=== PATIENT | male | born 1985 | race American Indian/Alaskan Native ===

== ENCOUNTER 2017-02-05 09:48 | Observation (INO) | payer BC ==
[~2017-02-05 09:48] MED LIST: ceFAZolin 2 GM in NACL 0.9% 100 ML IV ONE
[2017-02-05] MEDS ORDERED: NACL BACTERIOSTATIC INFILTRATI ONE (11:21)
--- NOTE | 2017-02-05 11:37 | Anesthesia Consultation ---
<HONORIO PEREZ - Last Filed: 02/05/17 11:31> Anesthesia Consult and Med Hx Date of service: 02/05/17 (Scheduled for lap inguinal hernia repair-left with Dr. Elkins) - Airway Anesthetic Teeth Evaluation: Good ROM Head & Neck: Adequate Mental/Hyoid Distance: Adequate Mallampati Class: Class II Intubation Access Assessment: Probably Good - Pulmonary Exam CTA: Yes - Cardiac Exam Cardiac Exam: RRR - Pre-Operative Health Status ASA Pre-Surgery Classification: ASA2 Proposed Anesthetic Plan: General - Pre-Anesthesia Comment Pre-Anesthesia Comments: No previous. NPO since RI. - Pulmonary Hx Smoking: Yes (CIGARETTES 1/2 PPW X 13 YRS) Hx Asthma: No Hx Sleep Apnea: No - Cardiovascular System Hx Hypertension: No - Central Nervous System Hx Seizures: No Hx Psychiatric Problems: No - Gastrointestinal Hx Gastroesophageal Reflux Disease: No - Endocrine Hx Non-Insulin Dependent Diabetes: No - Other Systems Hx Alcohol Use: Yes (occassional) Hx Substance Use: No Hx Cancer: No Hx Obesity: No <ENMANUEL GRAHAM - Last Filed: 02/05/17 12:02> Anesthesia Consult and Med Hx - Pulmonary Exam CTA: Yes (slight wheeze left side--tx per dr nichole with albuterol puffs x 2) - Other Systems Hx Alcohol Use: Yes
[2017-02-05] MEDS ORDERED: SUBLIMAZE ONE ×2 (11:49→19:45)
[2017-02-05] MEDS ORDERED: DIPRIVAN 10 MG/ML IV ONE ×2 (11:49→14:27)
[2017-02-05] MEDS ORDERED: MARCAINE 0.25% INFILTRATI ONE ×3 (11:50→12:32)
[2017-02-05] MEDS ORDERED: XYLOCAINE MPF 2% ONE (11:51)
[2017-02-05] MEDS ORDERED: ZEMURON IV ONE (11:52)
[2017-02-05] MEDS ORDERED: LACTATED RINGERS 1,000 ML IV SCH (12:00)
[2017-02-05] MEDS ORDERED: PROAIR IH ONE ×2 (12:00→14:32)
[2017-02-05] MEDS ORDERED: VERSED IV NR (12:00)
[2017-02-05] MEDS ORDERED: ANCEF/STERILE WATER 2 GM/20 ML 2 GM/20 ML SYRINGE IV SCH (12:00)
[2017-02-05] MEDS ORDERED: PEPCID PO NR (12:00)
[2017-02-05] MEDS ORDERED: ZOFRAN IV PRN (12:01)
[2017-02-05] MEDS ORDERED: DILAUDID IV PRN ×2 (12:01→13:10)
--- NOTE | 2017-02-05 12:02 | Anesthesia Day of Surgery ---
Anesthesia Day of Surgery - Day of Surgery Patient Examined: Yes Patient H&P Reviewed: Yes Patient is NPO: Yes Beta Blockers: No Cardiac Clearance: No Pulmonary Clearance: No
[2017-02-05] MEDS ORDERED: TORADOL ONE ×2 (12:09→14:00)
[2017-02-05] MEDS ORDERED: ZOFRAN ONE (12:25)
[2017-02-05] MEDS ORDERED: DECADRON ONE (12:25)
[2017-02-05] MEDS ORDERED: DILAUDID ONE (12:30)
[2017-02-05] MEDS ORDERED: ROBINUL ONE ×2 (12:31)
[2017-02-05] MEDS ORDERED: NACL 0.9% IR ONE (12:33)
[2017-02-05] MEDS ORDERED: NEOSTIGMINE ONE (12:34)
[2017-02-05] MEDS ORDERED: LACTATED RINGERS 1,000 ML ONE (13:30)
--- NOTE | 2017-02-05 14:17 | Post Operative Note ---
Pre-op diagnosis: Right inguinal hernia Post-op diagnosis: same Findings: large indirect hernia with omentum Procedure: Laparoscopci mesh repair Rt inguinal hernia Anesthesia: MELVIN Surgeon: NISSA TOLENTINO Vocational Education Professional: COY ARRIAGA Estimated blood loss: minimal Pathology: none Condition: stable Disposition: PACU
--- NOTE | 2017-02-05 14:19 | Discharge Summary ---
Short Stay Discharge Plan Activity: no restrictions Weight Bearing Status: Full Weight Bearing Diet: regular Wound: open to air Prescriptions: oxyCODONE /ACETAMINOPHEN [Percocet 5/325] 1 tab PO Q4HR PRN #20 tab PRN Reason: Pain traMADol [Ultram 50 MG tab] 50 mg PO Q4HR PRN #20 tablet PRN Reason: Pain
[2017-02-05] MEDS ORDERED: PROVENTIL IH ONE ×2 (14:24→14:32)
[2017-02-05] MEDS ORDERED: QUELICIN ONE (14:28)
[2017-02-05] MEDS ORDERED: ADRENALIN ONE (14:31)
[2017-02-05] MEDS ORDERED: DIPRIVAN 10 MG/ML 1,000 MG/100 ML BOTTLE IV ONE (15:08)
[2017-02-05] MEDS ORDERED: LASIX ONE (15:18)
[2017-02-05] MEDS ORDERED: ARTIFICIAL TEARS OPHTH OINT OU PRN (15:18)
[2017-02-05] MEDS ORDERED: VASELINE LIP THERAPY TP PRN (15:18)
--- NOTE | 2017-02-05 15:38 | XRay Report ---
AP CHEST: HISTORY: Endotracheal tube placement An endotracheal tube has been inserted which terminates 2.5 cm superior to the julian. Heart and mediastinal structures are normal. There are subtle groundglass infiltrates in both lungs which probably represents mild congestive changes. No consolidation, pleural effusion or pneumothorax. The thoracic cage is grossly intact. IMPRESSION: Bilateral groundglass infiltrates suggestive of mild pulmonary edema. Adequate placement of the endotracheal tube.
[2017-02-05] MEDS: SUBLIMAZE IV PRN ×3 (15:50→19:50)
[2017-02-05 15:52] LABS: ISTAT Base Excess -2; ISTAT HCO3 25.9; ISTAT PCO2 60.4 (35-45); ISTAT PO2 84 (80-105); ISTAT SO2 94; ISTAT TCO2 28
[2017-02-05] MEDS ORDERED: NACL 0.9% 500 ML IV SCH (16:00)
--- NOTE | 2017-02-05 16:07 | Event Note ---
Date: 02/05/17 Called to PACU for patient with decreased O2 saturation and decreased respiratory effort.MARIXA tapia was ventilating with ambu bag and mask with improving result. bilateral wheezing noted. Reintubated with 7.5 oett after propofol/sux and albuterol neb tx delivered per oett Discussed with pulmonary per Dr Madrid and lasix/solumedrol given and continued ventilation overnight as CXR c/w mild Pulmonary edema
[2017-02-05] MEDS ORDERED: LASIX IV ONE (16:30)
[2017-02-05] MEDS ORDERED: NACL 0.9% IV ONE (16:30)
[2017-02-05 16:35] LABS: ISTAT Base Excess 0; ISTAT HCO3 25.8; ISTAT PCO2 47.7 (35-45); ISTAT PH 7.341 (7.35-7.45); ISTAT PO2 96 (80-105); ISTAT SO2 97; ISTAT TCO2 27
--- NOTE | 2017-02-05 17:04 | Post Anesthesia Evaluation ---
- Post Anesthesia Evaluation Patient Participated: No Airway Patent: Yes Stable Respiratory Function: Yes Nausea/Vomiting: No Temp > 96.8F: Yes Pain Manageable: Yes Adequeate Hydration: Yes Anesthesia Complications: No Block Receding Appropriately: Not Applicable Patient on Ventilator: Yes Other Comments: transfer to ICU once bed available. Patient on propofol drip. vital signs stable.
--- NOTE | 2017-02-05 17:56 | Operative Report ---
PREOPERATIVE DIAGNOSIS: Left inguinal hernia. POSTOPERATIVE DIAGNOSIS: Left inguinal scrotal hernia with incarcerated omentum. OPERATIVE PROCEDURE: Laparoscopic mesh repair of left inguinal scrotal. ANESTHESIA: General endotracheal. SURGEON: Dalton Elkins M.D. POWER BENDER OPERATOR: Dr. Jarret Browne. INDICATIONS: A 32-year-old male patient presenting with a symptomatic reducible left inguinal hernia. FINDINGS: Large inguinoscrotal indirect hernia with herniated omentum that was adherent to the hernial sac. The gonadal vessels and vas deferens are in the normal anatomic location. No inguinal hernia noted on the right side. Visualized part of the bowel loops appeared normal. DESCRIPTION OF PROCEDURE: After satisfactory induction of general endotracheal anesthesia, abdomen was prepped and draped. Sanchez catheter and SCD compression devices were placed. A supraumbilical incision was made and a Veress needle was inserted in the peritoneal cavity. After adequate carbon dioxide insufflation up to 12 mmHg, 11 mm trocar was inserted, through this a 10-mm 30-degree angle scope was placed and with the patient in head down and right side down position, the lateral 5 mm ports are placed. The herniated omentum was reduced and using minimal amount of cautery it was from the hernial sac. Peritoneum was developed adjacent to the left-sided 5 mm trocar extended medially to the urachal ligament. This was divided inferiorly. A preperitoneal space was completely developed exposing the Dani's ligament and laterally, a pocket was created. The hernial sac was from the gonadal vessels and vas deferens by blunt and sharp dissection and the internal spermatic fascia was using minimal amount of cautery and by traction and countertraction. Hemostasis was quite adequate. The peritoneal flap was developed proximally beyond the confluence of these two structures. In the space developed as above, 3 inches x 5 inches Parietex mesh was placed straightened out to cover the defect. It was anchored to the Dani's ligament inferiorly. Superiorly and laterally more tackers consisting of CapSure type were placed. Peritoneal flaps were reapproximated with more CapSure. Desufflation was done after checking for hemostasis and all the trocars were removed under direct visualization. Linea alba and the supraumbilical trocar site was approximated with 0 Vicryl suture. All the incisions were closed with 4-0 Monocryl sutures. He tolerated the procedure well, extubated and transferred to postanesthesia care unit in satisfactory condition. JOB# [id number] HYUNN/SHANAE
[2017-02-05] MEDS ORDERED: D5/0.45NS 1,000 ML IV SCH (18:00)
[2017-02-05] MEDS: DUONEB 0.5 MG-3 MG/3 ML SOLN IH SCH (20:04)
--- NOTE | 2017-02-05 21:06 | Admit Criteria Form ---
Admission Criteria Documentation: AMBULATORY SURGERY EXCEPTION CRITERIA Ambulatory Surgery Exception Criteria ( Place 'X' for any and all applicable criteria): Surgery or procedure performed on ambulatory basis may require inpatient stay for[A] ANY ONE of the following(1)(2)(3)(4)(5)(6)(7)(8)(9): [] I. A preoperative situation, condition, or finding that warrants inpatient stay as indicated by ANY ONE of the following: [] a) Inpatient care needed because of severity of a disease or condition rather than the surgery (eg, severe cardiac or respiratory disease, severe infection) (15) (16 ) (17) (18) [] b) Emergent procedure (eg, angioplasty for acute ischemia)(19) [] c) Complex surgical approach or situation as indicated by ANY ONE of the following(3): [] i) Open approach needed instead of usual endoscopic, transcatheter, or other less invasive procedure [] ii) Difficult approach because of previous operation [] iii) Airway monitoring required after open neck procedures(20)(21) [] iv) Large mass requiring unusually extensive dissection [] v) Additional complicating feature requiring inpatient care (eg, drain management)(22(23): [] d) Major surgery in a pt with high anesthetic risk as indicated by ANY ONE of the following (2)(3)(5)(7)(8): [] i) ASA risk class III or higher (severe systemic disease impairing function) [D] [] ii) Advanced age (eg, older than 85 years)(14)(24) [] iii) Symptomatic heart failure(25) [] iv) Symptomatic asthma or COPD(8)(21) [] v) Morbid obesity with hemodynamic or respiratory problems(20)( 21)(26)(27) [] vi) Obstructive sleep apnea(20)(21) [] vii) Former premature infants who are younger than 60 weeks [] viii) High risk for severe postoperative abnormalities (eg, severe postoperative hypocalcemia after parathyroidectomy for severe hyperparathyroidism)(27)( 28) [] ix) Unstable angina(25) [] e) Drug-related risk requiring inpatient stay as indicated by ANY ONE of the following(5)(10)(14)(32)(33) [] i) Procedure requires discontinuing drugs or other therapy (eg , antiarrhythmic medication, antiseizure medication), which necessitates inpatient observation or treatment.(18)(31) [] ii) Major surgery and high risk drug use as indicated by ANY ONE of the following: [] 1) Active abuse of cocaine or similar drug [] 2) Monoamine oxidase inhibitor use [] 3) Other drug identified as posing risk [] f) Inadequate outpatient care situation as indicated by ANY ONE of the following(5)(10)(14)(32)(33) [] i) Patient lives remote from medical facility and procedure has urgent complication potential, and temporary nearby residence cannot be arranged [] ii) Patient will have postprocedure incapacitation and inadequate assistance at home, or alternative level of care cannot be arranged. [] iii) Patient will have long general anesthesia or procedure side effect resolution time, and competent person to stay with patient on first postoperative night at home or alternative level of care cannot be arranged. []iv) Other inadequate outpatient situation that cannot be handled by other means [X] II. A perioperative event, condition, or finding that warrants inpatient stay as indicated by ANY ONE of the following (1)(2)(3): [X] a) Inadequate physiologic recovery: cardiovascular, respiratory, or hemodynamic status not normal or near preoperative baseline(18) [] b) Hemodynamic instability [] c) Patient not alert with near normal or baseline mental status [] d) Temperature not normal or as expected and not appropriate for outpatient treatment of condition [] e) Ambulatory or appropriate activity level status not yet achieved post procedure [E](34)(35)(36) [] f) Operative site not appropriate (eg, unexpected or excessive drainage or bleeding) [] g) Postoperative effects not resolved or adequately managed (eg, significant pain or vomiting not appropriate for outpatient or next level of care)(10)(12) [] h) Complicating features requiring inpatient care as indicated by ANY ONE of the following(37): [] i) Severe complications of procedure (eg, bowel injury, airway compromise, vascular injury,severe hemorrhage) [] ii) Extensive (eg, dissection far beyond usual scope of procedure ) or prolonged (eg, 120 minutes beyond usual) surgery needed requiring inpatient postoperative care [] iii) Conversion to an open or complex procedure that requires inpatient care (eg, open vs laparoscopic cholecystectomy, abdominal vs vaginal hysterectomy)(38) [] iv) Comorbid condition or test result identified during or post procedure that requires inpatient care (7) [] v) Malignant hyperthermia(30) [] vi) Other complicating feature requiring inpatient care(22)(23) Inpatient stay may be needed until ALL of the following are present (1)(2)(3)(4) (5)(6)(10)(14)(33)(40): []a) Physiologic recovery: cardiovascular, respiratory, and hemodynamic status normal or near preoperative baseline []b) Hemodynamic stability []c) Patient alert, with near normal or baseline mental status []d) Temperature appropriate: patient afebrile or temperature appropriate for outpt treatment of condition []e) Activity level appropriate: ambulatory or appropriate activity level post procedure []f) Operative site appropriate as indicated by ALL of the following: []i) Site dry or with expected drainage []ii) Any blood noted is as expected for procedure. []g) Postoperative effects resolved or managed as indicated by ALL of the following: []i) Pain management appropriate for outpatient (or next level of) care(10) []ii) Minimal nausea and vomiting: if present, successfully treated with oral medication(12) []iii) Headache, dizziness, or drowsiness (if present) are mild. []h) Voiding status acceptable as indicated by ANY ONE of the following: []i) Voiding spontaneously []ii) No voiding but instructions given for follow-up in 6 to 8 hours []iii) Urinary catheter in place, and instructions given for follow-up []i) Complicating features requiring inpatient care manageable at a lower level of care(37) []j) Comorbid conditions manageable at a lower level of care(37) The original [employer] content created by [employer] has been revised. The portions of the content which have been revised are identified through the use of italic text or in bold, and [employer] has neither reviewed nor approved the modified material. All other unmodified content is copyright [employer]. Please see references footnoted in the original [employer] edition 2016 Admission Criteria Met: Yes
--- NOTE | 2017-02-05 21:10 | Admit Criteria Form ---
Admission Criteria Documentation: RESPIRATORY FAILURE GRG Clinical Indications for Admission to Inpatient Care (Place 'X' for any and all applicable criteria): Hospital admission is needed for appropriate care of the patient because of acute respiratory failure or insufficiency as indicated by ANY ONE of the following(1)(2)(3)(4)(5)(6)(7)(8): [X ]I. Mechanical ventilation needed (acute invasive or noninvasive) [ ]II. Severe ventilation deficit as indicated by ANY ONE of the following (9) [ ]a) Respiratory acidosis (pH less than 7.32 and partial pressure of carbon dioxide greater than 40 mm Hg (5.3 kPa)) [ ]b) Partial pressure of carbon dioxide greater than 44 mm Hg (5.9 kPa ) (new) [ ]c) Airflow measurements less than 25% of predicted (eg, peak expiratory flow rate less than 100 L/minute) [ ]d) Forced vital capacity less than 15 mL/kg of ideal body weight, or 50% decrease in vital capacity from baseline [ ]III. Noncardiac pulmonary edema not resolving with rapid emergency treatment (8) [ ]IV. Severe respiratory distress as indicated by ANY ONE of the following: [ ]a) Severe tachypnea (respiratory rate greater than 30, greater than 45 for 6-month-old, greater than 60 for ) [ ]b) Severe hypoxemia (partial pressure of oxygen less than 50 mm Hg ( 6.7 kPa) on greater than 50% oxygen or partial pressure of oxygen to FIO2 ratio less than 200) [ ]c) Mental status deterioration from respiratory disease [ ]V. Airway obstruction or inadequate protection [A](10)(11) The original [employer] content created by [employer] has been revised. The portions of the content which have been revised are identified through the use of italic text or in bold, and [employer] has neither reviewed nor approved the modified material. All other unmodified content is copyright [employer]. Please see references footnoted in the original [employer] edition 2016 Admission Criteria Met: Yes
[2017-02-05] MEDS ORDERED: HEPARIN ONE (23:35)
[2017-02-06] MEDS: DUONEB 0.5 MG-3 MG/3 ML SOLN IH SCH ×5 (01:46→20:46)
[2017-02-06] MEDS: DIPRIVAN 10 MG/ML 1,000 MG/100 ML BOTTLE IV SCH ×3 (02:30→06:55)
[2017-02-06 05:11] LABS: ISTAT Base Excess 0; ISTAT HCO3 23.3; ISTAT PCO2 31.1 (35-45); ISTAT PH 7.483 (7.35-7.45); ISTAT PO2 197 (80-105); ISTAT SO2 100; ISTAT TCO2 24
[2017-02-06] MEDS ORDERED: HEPARIN SUB-Q SCH (06:00)
[2017-02-06 06:15] LABS: Hematocrit 41.2 % (35.5-45.6); Hemoglobin 13.7 gm/dl (11.8-15.2); Mean Corpuscular HGB Conc 33 % (32-34); Mean Corpuscular Hemoglobin 30 pg (28-32); Mean Corpuscular Volume 89 fl (84-94); Platelet Count 261 K/mm3 (140-440); Red Blood Count 4.63 M/mm3 (3.65-5.03); Red Cell Distribution Width 12.8 % (13.2-15.2); White Blood Count 7.9 K/mm3 (4.5-11.0)
[2017-02-06 06:29] LABS: BUN/Creatinine Ratio 11.11; Blood Urea Nitrogen 10 mg/dL (9-20); Calcium 9.2 mg/dL (8.4-10.2); Carbon Dioxide 21 mmol/L (22-30); Glucose 151 mg/dL (75-100)
[2017-02-06 06:30] LABS: Anion Gap 21 mmol/L; Chloride 97.7 mmol/L (98-107); Magnesium 1.6 mg/dL (1.7-2.3); Potassium 3.8 mmol/L (3.6-5.0); Sodium 136 mmol/L (137-145)
[2017-02-06 07:10] LABS: Basophils % (Manual) 0 % (0.0-1.8); Blastocytes % (Manual) 0 %; Diff Status Complete; Eosinophils % (Manual) 0 % (0.0-4.3); RBC Morphology Normal
[2017-02-06] MEDS: SUBLIMAZE IV PRN ×2 (07:48→12:47)
--- NOTE | 2017-02-06 09:14 | XRay Report ---
AP CHEST :02/06/17 CLINICAL: Intubated.Follow up respiratory failure. COMPARISON:The previous day. FINDINGS: The endotracheal tube is in satisfactory position. No other tubes or lines. Almost complete clearing of the lungs since the last exam. The heart is normal size. The pulmonary vessels are indistinct. No pneumothorax. IMPRESSION: Interval improvement with near complete clearing of bilateral airspace disease.
--- NOTE | 2017-02-06 09:45 | Consultation ---
History of Present Illness Consult date: 02/06/17 Requesting physician: NISSA TOLENTINO Reason for consult: other (Negative pressure pulmonary edema) History of present illness: 32 y/o male, post-op day one from lap surgery. Developed negative pressure pulmonary edema post-op, likely exhaled against a closed glottis and had laryngospasm requiring re-intubation. Sedated with propofol. Given steroids and lasix yesterday. CXR is clear. ABG is well. Was wide awake on 50 of propofol but given fentanyl this am for more sedation. Remainder of the review is negative. Past History Past Medical History: other (unable to obtain) Past Surgical History: Other (unable to obtain) Social history: other (unable to obtain) Family history: other (unable to obtain) Medications and Allergies Allergies Allergy/AdvReac Type Severity Reaction Status Date / Time No Known Allergies Allergy Verified 02/05/17 11:24 Home Medications Medication Instructions Recorded Confirmed Last Taken Type oxyCODONE /ACETAMINOPHEN [Percocet 1 tab PO Q4HR PRN #20 tab 02/05/17 Unknown Rx 5/325] traMADol [Ultram 50 MG tab] 50 mg PO Q4HR PRN #20 tablet 02/05/17 Unknown Rx Active Meds: Active Medications Albuterol/Ipratropium (Duoneb 0.5 Mg-3 Mg/3 Ml Soln) 1 ampul IH Q6HRT [facility] Last Admin: 02/06/17 07:44 Dose: 1 ampul Famotidine (Pepcid) 20 mg IV BID [facility] Last Admin: 02/06/17 09:07 Dose: 20 mg Fentanyl (Sublimaze) 100 mcg IV Q2H PRN PRN Reason: Pain Last Admin: 02/06/17 07:48 Dose: 100 mcg Heparin Sodium (Porcine) (Heparin) 5,000 unit SUB-Q Q8HR [facility] Last Admin: 02/06/17 06:57 Dose: 5,000 unit Hydrophilic Ointment (Vaseline Lip Therapy) 1 applic TP Q2HR PRN PRN Reason: Dry Lips Propofol (Diprivan 10 Mg/Ml) 1,000 mg in 100 mls @ 2.041 mls/hr IV TITR YO; 5 MCG/KG/MIN PRN Reason: Protocol Last Admin: 02/06/17 06:55 Dose: 50 mcg/kg/min, 20.412 mls/hr Dextrose/Sodium Chloride (D5/0.45ns) 1,000 mls @ 125 mls/hr IV DIRECT YO Last Admin: 02/06/17 04:56 Dose: 125 mls/hr Methylprednisolone Sodium Succinate (Solu-Medrol) 40 mg IV Q8H YO Last Admin: 02/06/17 08:26 Dose: 40 mg Multi-Ingred Cream/Lotion/Oil/Oint (Artificial Tears Ophth Oint) 1 applic OU Q4HR PRN PRN Reason: Dry Eye(s) Sodium Chloride (Nacl 0.9% 500 Ml) 1 ml IV DIRECT YO Review of Systems ROS unobtainable: due to endotracheal tube, due to mental status Physical Examination Vital signs: Vital Signs Temp Pulse Resp BP Pulse Ox 97.5 F L 47 L 16 115/74 99 02/05/17 11:00 02/05/17 11:00 02/05/17 11:00 02/05/17 11:00 02/05/17 11:00 General appearance: no acute distress ENT: other (orally intubated and sedated) Neck: supple, no lymphadenopathy Effort: normal Ascultation: Bilateral: clear Percussion: Bilateral: not dull Cardiovascular: regular rate and rhythm Gastrointestinal: other (post surgical changes) Extremities: no cyanosis, no edema, pink and warm, pulses normal Musculoskeletal: no deformities unable to assess Results - Laboratory Findings CBC and BMP: 02/06/17 04:38 02/06/17 04:38 ABG POC ABG pH 7.483 (7.35-7.45) H 02/06/17 05:02 POC ABG pCO2 31.1 (35-45) L 02/06/17 05:02 POC ABG pO2 197 (80-105) H 02/06/17 05:02 POC ABG HCO3 23.3 02/06/17 05:02 POC ABG Total CO2 24 02/06/17 05:02 POC ABG O2 Sat 100 02/06/17 05:02 Abnormal lab findings: Abnormal Labs 02/05/17 02/05/17 02/06/17 15:39 16:26 04:38 RDW 12.8 L Seg Neuts % (Manual) 93.0 H Lymphocytes % (Manual) 3.0 L Lymphocytes # (Manual) 0.2 L POC ABG pH 7.240 L 7.341 L POC ABG pCO2 60.4 H 47.7 H POC ABG pO2 Sodium Chloride Carbon Dioxide Glucose Magnesium 02/06/17 02/06/17 04:38 05:02 RDW Seg Neuts % (Manual) Lymphocytes % (Manual) Lymphocytes # (Manual) POC ABG pH 7.483 H POC ABG pCO2 31.1 L POC ABG pO2 197 H Sodium 136 L Chloride 97.7 L Carbon Dioxide 21 L Glucose 151 H Magnesium 1.6 L - Diagnostic Findings Chest x-ray: image reviewed (CXR is clear) Assessment and Plan 32 y/o male with acute hypoxic respiratory failure secondary to negative pressure pulmonary edema and laryngospasm, post-op day one from lap surgery 1. Discontinue all sedation 2. Extubate CCT 31 minutes.
[2017-02-06] MEDS ORDERED: PEPCID IV SCH (10:00)
[2017-02-06] MEDS ORDERED: PROTONIX IV SCH (10:00)
--- NOTE | 2017-02-06 12:42 | Progress Note ---
Assessment and Plan A/P: 1. The patient has been extubated successfully and is doing well. He will be discharged today. Subjective Date of service: 02/06/17 Patient Reports: Positive: no new complaints (The patient is resting comfortably in bed. ) Objective Vital Signs - 12hr 02/06/17 02/06/17 02/06/17 00:50 01:00 01:10 Temperature Pulse Rate 78 78 75 Pulse Rate [ Anterior Bilateral Throughout] Respiratory 22 22 22 Rate Respiratory Rate [Anterior Bilateral Throughout] Blood Pressure 111/68 121/66 121/66 O2 Sat by Pulse 100 100 100 Oximetry 02/06/17 02/06/17 02/06/17 01:20 01:30 01:40 Temperature Pulse Rate 79 81 73 Pulse Rate [ Anterior Bilateral Throughout] Respiratory 22 22 22 Rate Respiratory Rate [Anterior Bilateral Throughout] Blood Pressure 121/66 121/66 121/66 O2 Sat by Pulse 100 100 100 Oximetry 02/06/17 02/06/17 02/06/17 01:46 01:50 01:56 Temperature Pulse Rate 81 Pulse Rate [ 79 78 Anterior Bilateral Throughout] Respiratory 22 Rate Respiratory 22 22 Rate [Anterior Bilateral Throughout] Blood Pressure 121/66 O2 Sat by Pulse 100 Oximetry 02/06/17 02/06/17 02/06/17 02:00 02:10 02:20 Temperature Pulse Rate 82 86 79 Pulse Rate [ Anterior Bilateral Throughout] Respiratory 22 22 22 Rate Respiratory Rate [Anterior Bilateral Throughout] Blood Pressure 122/63 122/63 122/63 O2 Sat by Pulse 99 99 99 Oximetry 02/06/17 02/06/17 02/06/17 02:30 02:40 02:50 Temperature Pulse Rate 86 86 91 H Pulse Rate [ Anterior Bilateral Throughout] Respiratory 22 22 21 Rate Respiratory Rate [Anterior Bilateral Throughout] Blood Pressure 122/63 122/63 122/63 O2 Sat by Pulse 100 100 100 Oximetry 02/06/17 02/06/17 02/06/17 03:00 03:10 03:20 Temperature Pulse Rate 93 H 94 H 83 Pulse Rate [ Anterior Bilateral Throughout] Respiratory 22 22 22 Rate Respiratory Rate [Anterior Bilateral Throughout] Blood Pressure 134/90 134/90 134/90 O2 Sat by Pulse 100 100 100 Oximetry 02/06/17 02/06/17 02/06/17 03:30 03:40 03:50 Temperature Pulse Rate 75 91 H 81 Pulse Rate [ Anterior Bilateral Throughout] Respiratory 13 22 22 Rate Respiratory Rate [Anterior Bilateral Throughout] Blood Pressure 134/90 134/90 134/90 O2 Sat by Pulse 100 100 100 Oximetry 02/06/17 02/06/17 02/06/17 04:00 04:10 04:20 Temperature 98.5 F Pulse Rate 76 74 78 Pulse Rate [ Anterior Bilateral Throughout] Respiratory 22 22 22 Rate Respiratory Rate [Anterior Bilateral Throughout] Blood Pressure 134/85 134/85 134/85 O2 Sat by Pulse 100 100 100 Oximetry 02/06/17 02/06/17 02/06/17 04:30 04:40 04:50 Temperature Pulse Rate 75 82 83 Pulse Rate [ Anterior Bilateral Throughout] Respiratory 22 22 22 Rate Respiratory Rate [Anterior Bilateral Throughout] Blood Pressure 134/85 134/85 134/85 O2 Sat by Pulse 100 100 100 Oximetry 02/06/17 02/06/17 02/06/17 05:00 05:02 05:10 Temperature Pulse Rate 82 83 78 Pulse Rate [ Anterior Bilateral Throughout] Respiratory 22 22 Rate Respiratory Rate [Anterior Bilateral Throughout] Blood Pressure 128/73 134/85 128/73 O2 Sat by Pulse 99 100 99 Oximetry 02/06/17 02/06/17 02/06/17 05:20 05:30 05:40 Temperature Pulse Rate 71 83 83 Pulse Rate [ Anterior Bilateral Throughout] Respiratory 22 22 22 Rate Respiratory Rate [Anterior Bilateral Throughout] Blood Pressure 128/73 128/73 128/73 O2 Sat by Pulse 100 100 100 Oximetry 02/06/17 02/06/17 02/06/17 05:50 06:00 06:10 Temperature Pulse Rate 79 75 77 Pulse Rate [ Anterior Bilateral Throughout] Respiratory 22 22 22 Rate Respiratory Rate [Anterior Bilateral Throughout] Blood Pressure 128/73 127/72 127/72 O2 Sat by Pulse 100 100 100 Oximetry 02/06/17 02/06/17 02/06/17 06:20 06:30 06:40 Temperature Pulse Rate 76 98 H 65 Pulse Rate [ Anterior Bilateral Throughout] Respiratory 22 23 22 Rate Respiratory Rate [Anterior Bilateral Throughout] Blood Pressure 127/72 127/72 127/72 O2 Sat by Pulse 99 100 100 Oximetry 02/06/17 02/06/17 02/06/17 06:50 07:00 07:10 Temperature Pulse Rate 81 85 81 Pulse Rate [ Anterior Bilateral Throughout] Respiratory 18 22 22 Rate Respiratory Rate [Anterior Bilateral Throughout] Blood Pressure 127/72 139/91 139/91 O2 Sat by Pulse 100 100 100 Oximetry 02/06/17 02/06/17 02/06/17 07:20 07:30 07:40 Temperature Pulse Rate 83 76 102 H Pulse Rate [ Anterior Bilateral Throughout] Respiratory 15 14 23 Rate Respiratory Rate [Anterior Bilateral Throughout] Blood Pressure 139/91 139/91 139/91 O2 Sat by Pulse 100 95 100 Oximetry 02/06/17 02/06/17 02/06/17 07:45 07:47 07:50 Temperature Pulse Rate 102 H 90 Pulse Rate [ 94 H Anterior Bilateral Throughout] Respiratory 22 Rate Respiratory 22 Rate [Anterior Bilateral Throughout] Blood Pressure 139/91 139/91 O2 Sat by Pulse 100 100 Oximetry 02/06/17 02/06/17 02/06/17 08:00 08:10 08:20 Temperature 97.4 F L Pulse Rate 74 67 69 Pulse Rate [ Anterior Bilateral Throughout] Respiratory 22 22 22 Rate Respiratory Rate [Anterior Bilateral Throughout] Blood Pressure 127/71 127/71 127/71 O2 Sat by Pulse 100 100 100 Oximetry 02/06/17 02/06/17 02/06/17 08:30 08:40 08:50 Temperature Pulse Rate 64 63 63 Pulse Rate [ Anterior Bilateral Throughout] Respiratory 22 22 22 Rate Respiratory Rate [Anterior Bilateral Throughout] Blood Pressure 127/71 127/71 127/71 O2 Sat by Pulse 100 100 99 Oximetry 02/06/17 02/06/17 02/06/17 09:00 10:00 11:43 Temperature Pulse Rate 67 67 67 Pulse Rate [ Anterior Bilateral Throughout] Respiratory 22 Rate Respiratory Rate [Anterior Bilateral Throughout] Blood Pressure 134/79 134/79 O2 Sat by Pulse 100 100 Oximetry 02/06/17 02/06/17 12:00 12:05 Temperature Pulse Rate Pulse Rate [ Anterior Bilateral Throughout] Respiratory Rate Respiratory Rate [Anterior Bilateral Throughout] Blood Pressure O2 Sat by Pulse 100 99 Oximetry - Respiratory normal respiratory effort, clear to auscultation - Abdomen soft (soft, minimal incisonal tenderness, incisons healing well) - Labs 02/06/17 04:38 02/06/17 04:38 Diabetes panel 02/06/17 Range/Units 04:38 Sodium 136 L (137-145) mmol/L Potassium 3.8 (3.6-5.0) mmol/L Chloride 97.7 L (98-107) mmol/L Carbon Dioxide 21 L (22-30) mmol/L BUN 10 (9-20) mg/dL Creatinine 0.9 (0.8-1.5) mg/dL Glucose 151 H (75-100) mg/dL Calcium 9.2 (8.4-10.2) mg/dL Calcium panel 02/06/17 Range/Units 04:38 Calcium 9.2 (8.4-10.2) mg/dL Pituitary panel 02/06/17 Range/Units 04:38 Sodium 136 L (137-145) mmol/L Potassium 3.8 (3.6-5.0) mmol/L Chloride 97.7 L (98-107) mmol/L Carbon Dioxide 21 L (22-30) mmol/L BUN 10 (9-20) mg/dL Creatinine 0.9 (0.8-1.5) mg/dL Glucose 151 H (75-100) mg/dL Calcium 9.2 (8.4-10.2) mg/dL Adrenal panel 02/06/17 Range/Units 04:38 Sodium 136 L (137-145) mmol/L Potassium 3.8 (3.6-5.0) mmol/L Chloride 97.7 L (98-107) mmol/L Carbon Dioxide 21 L (22-30) mmol/L BUN 10 (9-20) mg/dL Creatinine 0.9 (0.8-1.5) mg/dL Glucose 151 H (75-100) mg/dL Calcium 9.2 (8.4-10.2) mg/dL
--- NOTE | 2017-02-06 12:44 | Discharge Summary ---
Providers - Providers Date of Admission: 02/05/17 15:21 Date of discharge: 02/06/17 Attending physician: COY ARRIAGA MD 02/05/17 15:18 Consult to Physician [CONS] Stat Consulting Provider: REMINGTON RUBALCAVA Reason For Exam: Acute Respiratory Failure Place consult to:: Remington Rubalcava MD Notified:: Remington Rubalcava MD 02/05/17 15:19 Consult to Dietitian/Nutrition [CONS] Routine Physician Instructions: Reason For Exam: Intubated Reason for Consult: Diet education Primary care physician: LOSS CONTROL CONSULTANT Hospitalization Condition: Good Disposition: DISCHARGED TO HOME OR SELFCARE Core Measure Documentation - Palliative Care Palliative Care/ Comfort Measures: Not Applicable - Core Measures Any of the following diagnoses?: none - VTE Discharge Requirements Deep Vein Thrombosis/Pulmonary Embolism Present on Admission: No Exam - Constitutional Vitals: Temp Pulse Resp BP Pulse Ox 97.4 F L 67 22 134/79 99 02/06/17 08:00 02/06/17 11:43 02/06/17 09:00 02/06/17 11:43 02/06/17 12:05 General appearance: Present: no acute distress - Respiratory Respiratory effort: normal - Abdominal General gastrointestinal: Present: soft (minimal incisional tenderness, incisions healing well) Plan Activity: advance as tolerated Weight Bearing Status: Weight Bear as Tolerated Diet: regular Wound: open to air (may shower in 2 days) Follow up with: NISSA TOLENTINO MD [Staff Physician] - 7 Days Prescriptions: oxyCODONE /ACETAMINOPHEN [Percocet 5/325] 1 tab PO Q4HR PRN #20 tab PRN Reason: Pain traMADol [Ultram 50 MG tab] 50 mg PO Q4HR PRN #20 tablet PRN Reason: Pain
--- NOTE | 2017-02-06 15:42 | Progress Note ---
Subjective Date of service: 02/06/17 Interval history: 1st POD after laparoscopic hernia repair Patient probably had episode of negative pressure pulmonary edema, which has resolved. Was reintubated after the surgery, but recovered really well. He was extubated in stable condition and planned to be discharged by the surgeon Objective - Constitutional Vitals: Vital Signs - 12hr 02/06/17 02/06/17 02/06/17 03:40 03:50 04:00 Temperature 98.5 F Pulse Rate 91 H 81 76 Pulse Rate [ Anterior Bilateral Throughout] Respiratory 22 22 22 Rate Respiratory Rate [Anterior Bilateral Throughout] Blood Pressure 134/90 134/90 134/85 O2 Sat by Pulse 100 100 100 Oximetry 02/06/17 02/06/17 02/06/17 04:10 04:20 04:30 Temperature Pulse Rate 74 78 75 Pulse Rate [ Anterior Bilateral Throughout] Respiratory 22 22 22 Rate Respiratory Rate [Anterior Bilateral Throughout] Blood Pressure 134/85 134/85 134/85 O2 Sat by Pulse 100 100 100 Oximetry 02/06/17 02/06/17 02/06/17 04:40 04:50 05:00 Temperature Pulse Rate 82 83 82 Pulse Rate [ Anterior Bilateral Throughout] Respiratory 22 22 22 Rate Respiratory Rate [Anterior Bilateral Throughout] Blood Pressure 134/85 134/85 128/73 O2 Sat by Pulse 100 100 99 Oximetry 02/06/17 02/06/17 02/06/17 05:02 05:10 05:20 Temperature Pulse Rate 83 78 71 Pulse Rate [ Anterior Bilateral Throughout] Respiratory 22 22 Rate Respiratory Rate [Anterior Bilateral Throughout] Blood Pressure 134/85 128/73 128/73 O2 Sat by Pulse 100 99 100 Oximetry 02/06/17 02/06/17 02/06/17 05:30 05:40 05:50 Temperature Pulse Rate 83 83 79 Pulse Rate [ Anterior Bilateral Throughout] Respiratory 22 22 22 Rate Respiratory Rate [Anterior Bilateral Throughout] Blood Pressure 128/73 128/73 128/73 O2 Sat by Pulse 100 100 100 Oximetry 02/06/17 02/06/17 02/06/17 06:00 06:10 06:20 Temperature Pulse Rate 75 77 76 Pulse Rate [ Anterior Bilateral Throughout] Respiratory 22 22 22 Rate Respiratory Rate [Anterior Bilateral Throughout] Blood Pressure 127/72 127/72 127/72 O2 Sat by Pulse 100 100 99 Oximetry 02/06/17 02/06/17 02/06/17 06:30 06:40 06:50 Temperature Pulse Rate 98 H 65 81 Pulse Rate [ Anterior Bilateral Throughout] Respiratory 23 22 18 Rate Respiratory Rate [Anterior Bilateral Throughout] Blood Pressure 127/72 127/72 127/72 O2 Sat by Pulse 100 100 100 Oximetry 02/06/17 02/06/17 02/06/17 07:00 07:10 07:20 Temperature Pulse Rate 85 81 83 Pulse Rate [ Anterior Bilateral Throughout] Respiratory 22 22 15 Rate Respiratory Rate [Anterior Bilateral Throughout] Blood Pressure 139/91 139/91 139/91 O2 Sat by Pulse 100 100 100 Oximetry 02/06/17 02/06/17 02/06/17 07:30 07:40 07:45 Temperature Pulse Rate 76 102 H Pulse Rate [ 94 H Anterior Bilateral Throughout] Respiratory 14 23 Rate Respiratory 22 Rate [Anterior Bilateral Throughout] Blood Pressure 139/91 139/91 O2 Sat by Pulse 95 100 Oximetry 02/06/17 02/06/17 02/06/17 07:47 07:50 08:00 Temperature 97.4 F L Pulse Rate 102 H 90 74 Pulse Rate [ Anterior Bilateral Throughout] Respiratory 22 22 Rate Respiratory Rate [Anterior Bilateral Throughout] Blood Pressure 139/91 139/91 127/71 O2 Sat by Pulse 100 100 100 Oximetry 02/06/17 02/06/17 02/06/17 08:10 08:20 08:30 Temperature Pulse Rate 67 69 64 Pulse Rate [ Anterior Bilateral Throughout] Respiratory 22 22 22 Rate Respiratory Rate [Anterior Bilateral Throughout] Blood Pressure 127/71 127/71 127/71 O2 Sat by Pulse 100 100 100 Oximetry 02/06/17 02/06/17 02/06/17 08:40 08:50 09:00 Temperature Pulse Rate 63 63 67 Pulse Rate [ Anterior Bilateral Throughout] Respiratory 22 22 22 Rate Respiratory Rate [Anterior Bilateral Throughout] Blood Pressure 127/71 127/71 134/79 O2 Sat by Pulse 100 99 100 Oximetry 02/06/17 02/06/17 02/06/17 10:00 11:43 12:00 Temperature 97.7 F Pulse Rate 67 67 Pulse Rate [ Anterior Bilateral Throughout] Respiratory Rate Respiratory Rate [Anterior Bilateral Throughout] Blood Pressure 134/79 O2 Sat by Pulse 100 100 Oximetry 02/06/17 02/06/17 02/06/17 12:05 12:47 13:52 Temperature Pulse Rate Pulse Rate [ 54 L Anterior Bilateral Throughout] Respiratory 15 Rate Respiratory 12 Rate [Anterior Bilateral Throughout] Blood Pressure O2 Sat by Pulse 99 Oximetry - Labs CBC & Chem 7: 02/06/17 04:38 02/06/17 04:38 Labs: Abnormal lab results 02/05/17 02/05/17 02/06/17 Range/Units 15:39 16:26 04:38 RDW 12.8 L (13.2-15.2) % Seg Neuts % (Manual) 93.0 H (40.0-70.0) % Lymphocytes % (Manual) 3.0 L (13.4-35.0) % Lymphocytes # (Manual) 0.2 L (1.2-5.4) K/mm3 POC ABG pH 7.240 L 7.341 L (7.35-7.45) POC ABG pCO2 60.4 H 47.7 H (35-45) POC ABG pO2 (80-105) Sodium (137-145) mmol/L Chloride (98-107) mmol/L Carbon Dioxide (22-30) mmol/L Glucose (75-100) mg/dL Magnesium (1.7-2.3) mg/dL 02/06/17 02/06/17 Range/Units 04:38 05:02 RDW (13.2-15.2) % Seg Neuts % (Manual) (40.0-70.0) % Lymphocytes % (Manual) (13.4-35.0) % Lymphocytes # (Manual) (1.2-5.4) K/mm3 POC ABG pH 7.483 H (7.35-7.45) POC ABG pCO2 31.1 L (35-45) POC ABG pO2 197 H (80-105) Sodium 136 L (137-145) mmol/L Chloride 97.7 L (98-107) mmol/L Carbon Dioxide 21 L (22-30) mmol/L Glucose 151 H (75-100) mg/dL Magnesium 1.6 L (1.7-2.3) mg/dL
[2017-02-06 16:37] VITALS: BP 118/62
== END 2017-02-06 15:00 | disposition home or self-care (01) ==
LOC: OR 09:48 → CC1 15:21
PROVIDERS: ADMIT Surgery; ATTEND Surgery
DX: K40.30 Unilateral inguinal hernia, with obstruction, without gangrene, not specified as recurrent (principal); J96.91 Respiratory failure, unspecified with hypoxia; J38.5 Laryngeal spasm
CPT/HCPCS: 36415; 36600; 71010; 80048; 82803; 83735; 85007; 85025; 87070; 87205; 94002; 94003; 94640; 94760; 96372; 96374; 96375; 96376; C1781; G0378; J0171; J0330; J0690; J1100; J1170; J1644; J1885; J1940; J2250; J2405; J2704; J2710; J2920; J3010; J7120